=== PATIENT | male | born 1965 | race Two or more races ===

== ENCOUNTER 2020-09-15 05:35 | Day surgery (SDC) | payer OTHER ==
[~2020-09-15 05:35] MED LIST: ISENTRESS400 MG PO; NORVIR100 M1 PO; PREZISTA600 MG PO; TRUVADA 200 MG1 EACH PO
[2020-09-15] MEDS ORDERED: KEFLEX500 MG PO (11:20)
[2020-09-15] MEDS ORDERED: CIPRODEX OTIC7.5 ML OT (11:20)
[2020-09-15] MEDS ORDERED: ZOFRAN8 M1 PO (11:21)
== END 2020-09-15 14:30 | disposition home or self-care (01) ==
LOC: CIR.AMB 05:35
PROVIDERS: ATTEND Otolaryngology Otology & Neurotology
DX: H71.02 Cholesteatoma of attic, left ear (principal); H72.02 Central perforation of tympanic membrane, left ear; H90.A12 Conductive hearing loss, unilateral, left ear with restricted hearing on the contralateral side; H72.822 Total perforations of tympanic membrane, left ear; H92.12 Otorrhea, left ear; H71.22 Cholesteatoma of mastoid, left ear; H90.12 Conductive hearing loss, unilateral, left ear, with unrestricted hearing on the contralateral side; Z20.828 Contact with and (suspected) exposure to other viral communicable diseases

== ENCOUNTER 2021-07-13 05:15 | Day surgery (SDC) | payer OTHER ==
[~2021-07-13 05:15] MED LIST changes: +CIPRODEX OTIC7.5 ML OT; +KEFLEX500 MG PO; +ZOFRAN8 M1 PO
[2021-07-13] MEDS ORDERED: ZOFRAN8 MG PO (14:11)
[2021-07-13] MEDS ORDERED: CEPHALEXIN500 M1 PO (14:11)
== END 2021-07-13 17:05 | disposition home or self-care (01) ==
LOC: CIR.AMB 05:15
PROVIDERS: ATTEND Otolaryngology Otology & Neurotology
DX: H72.12 Attic perforation of tympanic membrane, left ear (principal); H71.22 Cholesteatoma of mastoid, left ear; H90.12 Conductive hearing loss, unilateral, left ear, with unrestricted hearing on the contralateral side; Z20.822 Contact with and (suspected) exposure to COVID-19

== ENCOUNTER 2021-09-01 18:30 | Emergency (ER) | payer OTHER ==
[~2021-09-01] VITALS: Ht 165.1 cm; Wt 70.3 kg
[~2021-09-01 18:30] MED LIST changes: +CEPHALEXIN500 M1 PO; +ZOFRAN8 MG PO
== END 2021-09-01 20:02 | disposition home or self-care (01) ==
LOC: ER 18:30
DX: K64.4 Residual hemorrhoidal skin tags (principal); K62.5 Hemorrhage of anus and rectum; Z72.0 Tobacco use

== ENCOUNTER 2021-09-10 08:23 | Emergency (ER) | payer OTHER ==
[~2021-09-10] VITALS: Ht 165.1 cm; Wt 70.3 kg
[2021-09-10] MEDS ORDERED: MULTI VITAMIN1 EACH PO (08:36)
[2021-09-10] MEDS ORDERED: ANALPRAM HC 2.530 GM RC (09:15)
[2021-09-10] MEDS ORDERED: KETO10TA2 PO (09:15)
== END 2021-09-10 09:38 | disposition home or self-care (01) ==
LOC: ER 08:23
DX: K64.8 Other hemorrhoids (principal)